=== PATIENT | male | born 1985 | race Caucasian/White ===

== ENCOUNTER 2024-03-13 07:58 | Day surgery (SDC) | payer OTHER, SELFPAY ==
[2024-02-06 06:14] VITALS: BMI 31.2
[2024-02-25 08:45] VITALS: BMI 30.7
[2024-03-13 08:48] VITALS: BMI 30.4
[2024-03-13 08:51] VITALS: BP 133/90; PULSE 68; RESP 16; TEMP 36.6; O2SAT 99
--- NOTE | 2024-03-13 08:58 | PM.HPGS ---
History of Present Illness History of Present Illness Consent: Risks, benefits, and alternatives have been discussed and questions answered. Patient agrees to proceed with procedure. Chief complaint: Hemorrhage of Anus and Rectum Narrative: Bryan Delgado is a 38 year old male referred for colonoscopy. Patient reports occasional bright red blood per rectum. Typically this occurs with wiping. Only occurs intermittently. Often associated with rectal pain. Patient reports his bowel habits are regular. He denies any significant diarrhea or constipation. Family History is noncontributory Review of Systems Review of Systems: All systems reviewed & are unremarkable except as noted in HPI and below PMFSH Past Medical History Medical History (Updated 03/13/24 @ 09:00 by Kb Dunn MD) Anxiety as acute reaction to exceptional stress Candidiasis, urogenital GERD (gastroesophageal reflux disease) Hemorrhoids Lipid screening Reflux laryngitis Tinea versicolor Surgical History Surgical History S/P T&A (status post tonsillectomy and adenoidectomy) Family History Family History Father Diabetes mellitus Hypertension Mother Hypertension Social History Social History (Updated 01/31/24 @ 15:59 by Chichi Pérez) Social History: Smoking packs per day: 0.5 Smoking cigarettes per day: 10.0 Years smoked: 15 Smoking pack-years: 7.50 Smoking status: Former smoker Tobacco type: cigarettes Second hand tobacco smoke exposure: Yes Smoking end date: 11/18/21 Alcohol intake: current Drinks per week: 2 Substance use: never Substance use type: does not use Do You Feel Safe in your Home?: Yes Lack of Transportation: No Lack of Food: Never True Current Housing: I Have Housing Concerned About Future Housing: No Difficulty Paying Gas/Electric Bills: No Difficulty Paying for Meds: No Currently Unemployed: No Education: Decline to Answer Difficulty w/ Childcare or Family Care: No Living arrangements: alone Occupation/Education: student Gender identity (if verbalized by the patient): Male Sexual Orientation (if Verbalized by the Patient): Straight or Heterosexual Spiritual care concerns: No Meds Home Medications and Allergies Home Medications Medication Instructions Recorded Confirmed Type sumatriptan succinate 25 mg tablet See Rx Instructions PO .COMPLEX 01/31/24 03/13/24 Rx #14 tabs creatine monohydrate 1 ea PO DAILY 02/25/24 03/13/24 History multivitamin with minerals-folic 1 tablet PO DAILY 02/25/24 03/13/24 History acid 0.4 mg tablet Allergies Allergy/AdvReac Type Severity Reaction Status Date / Time No Known Allergies Allergy Verified 03/13/24 08:43 Vital Signs Vital Signs - 24 hr 03/13/24 08:51 Temperature 98 F Pulse Rate 68 Respiratory Rate 16 Blood Pressure 133/90 Pulse Oximetry 99 Oxygen Delivery Room Air Exam Narrative: Physical exam reveals patient to be alert. Vital signs stable. HEENT is unremarkable. Patient is anicteric. Lungs are clear to auscultation and to percussion. heart is without murmur or extra sounds. Abdomen bowel sounds are present soft nontender with no organomegaly. Digital and external rectal exam is normal. Assessment and Plan Assessment and plan (1) Rectal bleeding: Code(s): K62.5 - Hemorrhage of anus and rectum Status: Acute Assessment and Plan: Patient with intermittent rectal bleeding. Colonoscopy requested to evaluate. This report follows separately.
[2024-03-13] MEDS: LACTATED RINGERS 1,000 ML 150 ML IV CONT (09:04)
--- NOTE | 2024-03-13 10:06 | WPDANESEPPF ---
Anes - Initial Pre Proc Eval Procedure: Operation Date: 03/13/24 10:00 Proposed Procedures p Diagnostic Colonoscopy - Kb Dunn MD Date/Time: 03/13/24 10:06 Surgeon: Kb Dunn MD Pre Op Diagnosis: neoplasm screening Pre Op Diagnosis: Hemorrhage of Anus and Rectum Patient Data Age: 38 Gender: M Height: 1.8 m Weight: 99 kg Last Vital Signs Temp 36.6 C 03/13/24 08:51 Pulse 68 03/13/24 08:51 Resp 16 03/13/24 08:51 BP 133/90 03/13/24 08:51 Pulse Ox 99 03/13/24 08:51 O2 Del Method Room Air 03/13/24 08:51 Allergies Allergy/AdvReac Type Severity Reaction Status Date / Time No Known Allergies Allergy Verified 03/13/24 08:43 Home Medications Medication Instructions Recorded Confirmed Type sumatriptan succinate 25 mg tablet See Rx Instructions PO .COMPLEX 01/31/24 03/13/24 Rx #14 tabs creatine monohydrate 1 ea PO DAILY 02/25/24 03/13/24 History multivitamin with minerals-folic 1 tablet PO DAILY 02/25/24 03/13/24 History acid 0.4 mg tablet Patient hx anesthesia problems: none Family hx anesthesia problems: none Results Review: All pre-operative results and documents have been reviewed as part of the pre-operative evaluation. [facility] Past Medical History Medical History Anxiety as acute reaction to exceptional stress Candidiasis, urogenital GERD (gastroesophageal reflux disease) Hemorrhoids Lipid screening Reflux laryngitis Tinea versicolor Surgical History Surgical History S/P T&A (status post tonsillectomy and adenoidectomy) Family History Family History Father Diabetes mellitus Hypertension Mother Hypertension Social History Social History Social History: Smoking packs per day: 0.5 Smoking cigarettes per day: 10.0 Years smoked: 15 Smoking pack-years: 7.50 Smoking status: Former smoker Tobacco type: cigarettes Second hand tobacco smoke exposure: Yes Smoking end date: 11/18/21 Alcohol intake: current Drinks per week: 2 Substance use: never Substance use type: does not use Do You Feel Safe in your Home?: Yes Lack of Transportation: No Lack of Food: Never True Current Housing: I Have Housing Concerned About Future Housing: No Difficulty Paying Gas/Electric Bills: No Difficulty Paying for Meds: No Currently Unemployed: No Education: Decline to Answer Difficulty w/ Childcare or Family Care: No Living arrangements: alone Occupation/Education: student Gender identity (if verbalized by the patient): Male Sexual Orientation (if Verbalized by the Patient): Straight or Heterosexual Spiritual care concerns: No Anes - Eval Final PreProcedure Day of Procedure 03/13/24 10:06 Patient weight: normal Heart: regular rate and rhythm Lungs: normal air movement Airway: Mallampati scale class II Neurological: alert and oriented Last oral intake: >/= 8 hours ASA classification: II Emergent: no Anesthetic plan: proceed Anesthesia type and monitoring: general GIVS and standard monitoring Results Review: All pre-operative results and documents have been reviewed as part of the pre-operative evaluation. Informed Consent: The patient's anesthetic plan and its attendant risks and benefits were discussed with the patient/family/POA. Questions were solicited and answers provided to the satisfaction of the patient/family/POA.
[2024-03-13 10:33] VITALS: BP 127/84; PULSE 77; RESP 15; O2SAT 98
[2024-03-13 10:43] VITALS: BP 123/84; PULSE 64; RESP 15; O2SAT 97
[2024-03-13 10:53] VITALS: BP 129/87; PULSE 60; RESP 15; O2SAT 98
--- NOTE | 2024-03-13 12:41 | WPDANESPN ---
Anes - Prog Note Post-Op Date/Time: 03/13/24 12:41 Cardiovascular status: normal Respiratory status: normal Airway patency: baseline Mental status: baseline Post-Op hydration status: normal Vital Signs: Last Vital Signs Temp 36.6 C 03/13/24 08:51 Pulse 60 03/13/24 10:53 Resp 15 03/13/24 10:53 BP 129/87 03/13/24 10:53 Pulse Ox 98 03/13/24 10:53 O2 Del Method Room Air 03/13/24 10:53 Pain Score (VAS): 0 I/O: Intake & Output 03/12/24 03/13/24 03/13/24 23:59 07:59 15:59 Intake Total 600 Balance 600 Post-procedural complaints: none Patient Feedback: Patient satisfied with anesthetic care. Other Findings: Patient vital signs back to baseline. Patient denies nausea and vomiting. Patient's pain under control. Patient OK for discharge.
== END 2024-03-13 11:08 | disposition home or self-care (01) ==
PROVIDERS: PCP Family Medicine; Visit Provider Internal Medicine Gastroenterology
PROC: 0DJD8ZZ Inspection of Lower Intestinal Tract, Via Natural or Artificial Opening Endoscopic (ICD-10-PCS; CPT 45378; principal; 2024-03-13 10:00)
DX: K62.5 Hemorrhage of anus and rectum (principal); K60.2 Anal fissure, unspecified; K64.8 Other hemorrhoids
CPT/HCPCS: 45378